=== PATIENT | male | born 2000 ===

== ENCOUNTER → 2025-01-21 | Outpatient (REF) | payer OTHER ==
[2025-01-21 19:05] LABS: Trichomonas vaginalis (AMP) NOT DETECTED (NEGATIVE)
[2025-01-21 19:28] LABS: GC DNA AMPLIFICATION NEGATIVE (NEGATIVE)
== END ==
LOC: M LAB REF 17:11
PROVIDERS: ATTEND Physician Assistant Medical
DX: R30.0 Dysuria (principal)